=== PATIENT | female | born 1960 | race African-American/Black ===

== ENCOUNTER 2016-12-21 07:33 | Emergency (ER) | payer OTHER ==
[~2016-12-21] VITALS: Ht 152.4 cm; Wt 81.7 kg
[~2016-12-21 07:33] MED LIST: BENTYL 20 MG TA20 M1 PO; HYDROCHLOROTHIA25 M2 PO; LIPITOR 20 MG T20 M1 PO; OLANZAPINE15 MG PO; ONDANSETRON HCL4 M2 PO; PROTONIX40 M1 PO
[2016-12-21] MEDS ORDERED: MOBIC15 MG PO (08:05)
[2016-12-21] MEDS ORDERED: PANTOPRAZOLE SO40 M1 PO (08:05)
[2016-12-21] MEDS ORDERED: MUCINEX D ER 61 EACH PO (08:27)
[2016-12-21 08:49] VITALS: BP 138/65
== END 2016-12-21 08:53 | disposition home or self-care (01) ==
LOC: ER 07:33
DX: J06.9 Acute upper respiratory infection, unspecified (principal); I10 Essential (primary) hypertension; E78.00 Pure hypercholesterolemia, unspecified

== ENCOUNTER 2017-04-13 09:40 | Emergency (ER) | payer OTHER ==
[~2017-04-13] VITALS: Ht 154.9 cm; Wt 79.4 kg
--- NOTE | ~2017-04-13 | EKG ---
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 : 1960 Requested By: Romario Bradford Order Number: [id number] MD: Ehsan Lagos Measurements Intervals [place] Rate: 72 P: 46 OK: 124 QRS: 23 QRSD: 97 T: 11 QT: 405 QTc: 444 Interpretive Statements Sinus rhythm Abnormal R-wave progression, early transition Compared to ECG 12/21/2015 17:29:26 No significant changes Electronically Signed On 04-15-2017 8:19:12 CDT by Ehsan Lagos [email or web address] <ELECTRONICALLY SIGNED> By: Ehsan Lagos MD, [facility] 04/15/17 08 1006 Ehsan Lagos MD, [facility] /EPI
[~2017-04-13 09:40] MED LIST changes: +MOBIC15 MG PO; +MUCINEX D ER 61 EACH PO; +PANTOPRAZOLE SO40 M1 PO
[2017-04-13 10:24] LABS: ABSOLUTE NEUTROPHILS 6.3 thou/uL (1.4-8.2); BASOPHILS 0.5 % (0.0-2.0); EOSINOPHILS 0.9 % (0.0-3.0); HEMATOCRIT 34.3 % (37.0-47.0); HEMOGLOBIN 11.6 gm/dL (12.0-15.0); LYMPHOCYTES 16.4 % (24.0-44.0); MCH 30.3 pg (26.0-34.0); MCHC 33.8 g/dL (28.0-37.0); MCV 89.6 fL (80.0-100.0); MONOCYTES 6.1 % (1.0-8.0); PLATELET COUNT 307 thou/uL (150-400); POLYS 76.1 % (36.0-66.0); RBC 3.83 mil/uL (4.20-5.00); RDW 13.6 % (10.5-14.5); WBC 8.2 thou/uL (4.0-11.0)
[2017-04-13 10:26] LABS: MANUAL DIFF NO
[2017-04-13 10:36] LABS: URINE BILIRUBIN NEGATIVE (Negative); URINE BLOOD TRACE (Negative); URINE COLOR YELLOW; URINE GLUCOSE-RANDOM* NEGATIVE (Negative); URINE KETONES NEGATIVE (Negative); URINE PROTEIN (DIPSTICK) NEGATIVE (Negative); URINE SPECIFIC GRAVITY <= 1.005 (1.003-1.035); URINE UROBILINOGEN 0.2 E.U./dl (0.2-1.0)
[2017-04-13 10:38] LABS: URINE LEUKOCYTES-REFLEX 1+ (Negative)
[2017-04-13 10:40] LABS: SQUAMOUS 0-3 Few /LPF (0-3); URINE RBC 0-2 Rare /HPF (0-2); URINE WBC-REFLEX 0-5 Rare /HPF (0-5)
[2017-04-13 10:41] LABS: CASTS None Seen /LPF (None Seen); CRYSTALS None Seen /LPF (None Seen)
[2017-04-13 10:50] LABS: ANION GAP 9 mmol/L (7-16); BUN 10 mg/dL (7-18); CALCIUM 9.1 mg/dL (8.5-10.1); CHLORIDE 102 mmol/L (98-107); CO2 26 mmol/L (21-32); CREATININE 1.3 mg/dL (0.6-1.0); GLUCOSE 109 mg/dL (74-106); POTASSIUM 3.5 mmol/L (3.5-5.1); SODIUM 137 mmol/L (136-145)
[2017-04-13 10:59] LABS: ALBUMIN 3.4 g/dL (3.4-5.0); ALKALINE PHOSPHATASE 62 U/L (46-116); SGOT 21 U/L (15-37); SGPT 20 U/L (30-65); TOTAL BILIRUBIN 0.4 mg/dL (<0.1-1.0); TOTAL PROTEIN 6.9 g/dL (6.4-8.2); TROPONIN-I < 0.04 ng/mL (<0.04-0.07)
[2017-04-13] MEDS ORDERED: FLAGYL500 MG PO (11:49)
[2017-04-13] MEDS ORDERED: CIPRO500 MG PO (11:49)
[2017-04-13] MEDS ORDERED: SENNA8.6 MG PO (11:49)
[2017-04-13] MEDS ORDERED: ZOFRAN ODT4 M1 PO (12:31)
[2017-04-13 12:38] VITALS: BP 141/62
== END 2017-04-13 12:40 | disposition home or self-care (01) ==
LOC: ER 09:40
PROVIDERS: Physician Assistant
DX: K52.9 Noninfective gastroenteritis and colitis, unspecified (principal); K59.00 Constipation, unspecified; I10 Essential (primary) hypertension; E78.00 Pure hypercholesterolemia, unspecified

== ENCOUNTER 2017-04-15 14:46 | Inpatient (IN) | payer OTHER ==
[~2017-04-15] VITALS: Ht 154.9 cm; Wt 79.4 kg
--- NOTE | ~2017-04-15 | S ---
[facility] [place] [address] SURGICAL PATH RPT PROCEDURE Name: GAYLA CORDON [facility] Room #: 411-P ADM IN M.R.#: [id number] Admission: 04/15/17 Date of : 56 Discharge: Report #: [id number] Path Case #: [id number] PATHOLOGY REPORT COLLECTION DATE: 04/17/2017 RECEIVED DATE: 04/18/2017 SUBMITTING PHYS: Dr. Magnolia Welch OTHER PHYS: Dr. Jerald Chandler SPECIMEN(S) RECEIVED: A.Bx of duodenum B.Bx of gastric C.Random sigmoid bx * * * * * * * * * * * * FINAL DIAGNOSIS: A. Small bowel, duodenum, biopsy: - Unremarkable duodenal mucosa. B. Stomach, biopsy: - Mild chronic inactive gastritis. - An H. pylori immunostain is negative (Block B1; appropriately reactive control). C. Colon, sigmoid, biopsy: - Unremarkable colonic mucosa. - No evidence of microscopic colitis. PATHOLOGIST: Storm Edmonds M.D. REPORT ELECTRONICALLY SIGNED BY: Storm Edmonds M.D. DATE/TIME: 04/19/2017 13:36 * * * * * * * * * * * * GROSS PATHOLOGY: A. Received in formalin labeled "Gayla Cordon, BX of duodenum r/o celiac," is a segment of bob soft tissue measuring 0.4 cm in maximum dimension. The specimen is submitted entirely in cassette A1. B. Received in formalin labeled "Gayla Cordon, BX of gastric r/o H. pylori," are 4 segments of bob soft tissue measuring 1.1 x 1.5 x 0.2 cm in aggregate dimensions and ranging from 0.3 to 0.7 cm in maximum dimension. The specimen is submitted entirely in cassette B1. C. Received in formalin labeled "Gayla Cordon, random sigmoid BX," and additionally labeled on the requisition as "r. t. thickening mucosa of sigmoid seen on CT scan," are 4 segments of bob soft tissue measuring 1.2 x 0.9 x 0.4 cm in aggregate dimensions and ranging from 0.4 to 0.4 cm in maximum dimension. The specimen is submitted entirely in cassette C1. (TSD; 04/18/2017) [place] [address] [place] [address] SURGICAL PATH RPT PROCEDURE Name: GAYLA CORDON [facility] Room #: 411-P ADM IN M.R.#: [id number] Admission: 04/15/17 Date of : 56 Discharge: Report #: [id number] Path Case #: [id number] CLINICAL HISTORY: Pre-OP DX: c/o right lower quadrant pain, N+V Post-OP DX: Hiatal hernia, normal colon INITIAL CPT CODE(S): A; 98640 B; 37028, 87474 C; 18543 Professional services performed by [facility] at [facility] [place] [address] [address] Technical services performed by [facility] at [address] [place] [address], [address], [place] [address]. [facility] [address] [place] [address] PHONE: [phone] DIRECTOR: Luther Conte M.D. * * * END OF REPORT * * *
--- NOTE | ~2017-04-15 | P ---
[facility] [place] [address] PROCEDURE REPORT Name: EFRAIN CORDON [facility] Room #: 411-P ADM IN M.R.#: [id number] Admission: 04/15/17 Attend Phys: Jerald Chandler DO Discharge: Date of : 56 Report #: [id number] THIS REPORT FOR: //name// CC: FAM unknown Jerald Chandler DO DATE OF SERVICE: 04/17/2017 PROCEDURE: EGD with biopsies. PATIENT OF: Dr. Jerald Chandler. INDICATION FOR PROCEDURE: Evaluate right lower quadrant and right pelvic pain, constipation, nausea, vomiting, and an episode of diarrhea. The patient had a thickened sigmoid on CT scan. Informed consent for this procedure was obtained prior to the administration of any medication. The risks of the procedure, which include bleeding, perforation, infection, complications of sedation and the possibility I could miss something have been explained to the patient and she has indicated her consent by signing. Propofol was slowly titrated before and during this procedure for the patient comfort by the anesthesia service. The [employer] upper videoscope was introduced through the upper esophageal sphincter and advanced under direct visualization to the distal second portion of the duodenum. Findings are noted on withdrawal of the scope. The duodenal mucosa appeared normal. Biopsies were obtained times 2 to evaluate for histopathology and rule out celiac sprue. Pylorus, normal mucosa. Antrum, normal mucosa. Body, normal mucosa. Cardia and fundus, normal mucosa. Retroflex view does reveal the presence of a moderate hiatal hernia. Scope was withdrawn into the esophagus. The Z-line is appropriately located at the top of the gastric folds and is normal. The esophageal mucosa appears normal throughout its entirety. Scope was advanced then into the stomach again and biopsies were obtained times 2 to evaluate for possible H. pylori infection. The scope was withdrawn. Good hemostasis was noted after all biopsies. The patient went to the recovery room in stable condition. She tolerated the procedure well. Blood loss was less than 3 mL. IMPRESSION: Hiatal hernia. Other than that, normal EGD to descending duodenum, biopsies pending. RECOMMENDATIONS: To await the biopsy results. We will proceed with colonoscopy at this time. [address] [address] PROCEDURE REPORT Name: EFRAIN CORDON [facility] Room #: 411-P [facility] IN M.R.#: [id number] Admission: 04/15/17 Attend Phys: Jerald Chandler DO Discharge: Date of : 56 Report #: [id number] Thank you very much once again for allowing me to participate in her care, Dr. Chandler. <ELECTRONICALLY SIGNED> By: Magnolia Welch DO 04/18/179 2311 49 Magnolia Welch DO /nt
--- NOTE | ~2017-04-15 | HC ---
[facility] [place] [address] CONSULTATION Name: EFRAIN CORDON [facility] Room #: 411-P ADM IN M.R.#: [id number] Admission: 04/15/17 Attend Phys: Jerald Chandler DO Discharge: Date of : 56 Report #: [id number] THIS REPORT FOR: //name// CC: FAM unknown Jerald Chandler DATE OF SERVICE: 04/17/2017 REFERRING PROVIDER: Willian Arrieta MD REASON FOR CONSULTATION: Abdominal pain. HISTORY OF PRESENT ILLNESS: The patient is a 57-year-old [place] woman who speaks very little Tajik, but presented to the hospital 2 days ago with ongoing abdominal pain, nausea, and vomiting that has been ongoing for approximately a year and a half. The patient did have significant constipation with one large bowel movement after receiving an enema and is currently scheduled to undergo a bowel prep this evening with EGD and colonoscopy tomorrow. The patient does have a past surgical history of hysterectomy while in [facility] for unknown reasons and the request for consultation was secondary to the possibility of adhesions causing her ongoing pain and issues. The patient has no other complaints today. PAST MEDICAL HISTORY: Hypercholesterolemia and hypertension. PAST SURGICAL HISTORY: Hysterectomy. HOME MEDICATIONS: Hydrochlorothiazide, atorvastatin and olanzapine. ALLERGIES: No known drug allergies. FAMILY HISTORY: Reviewed and noncontributory. SOCIAL HISTORY: The patient does not utilize tobacco, alcohol, or illicit drugs. REVIEW OF SYSTEMS: GENERAL: The patient denies nocturnal fevers or chills. HEENT: No change in vision or change in hearing. NECK: No swelling or difficulty swallowing. HEART: No chest pain or palpitations. LUNGS: No cough or shortness of breath. ABDOMEN: Abdominal pain with nausea and vomiting. GENITOURINARY: No dysuria or hematuria. ENDOCRINE: No polyuria or polydipsia. HEMATOLOGIC: No history of bleeding or easy bruising. [facility] [address] [place] [address] CONSULTATION Name: EFRAIN CORDON [facility] Room #: 411-P [facility].#: [id number] Admission: 04/15/17 Attend Phys: Jerald Chandler DO Discharge: Date of : 56 Report #: [id number] EXTREMITIES: No history of weakness or limited range of motion. NEUROLOGIC: No history of syncope or near syncopal episodes. SKIN AND INTEGUMENT: No history of abnormal lesions or moles. PSYCHIATRIC: No history of anxiety or depression. PHYSICAL EXAMINATION: VITAL SIGNS: Temperature 98.4, pulse 73, respirations 18, blood pressure 142/79, she stands 5 feet 1 inch tall and weighs 175 pounds. GENERAL: Alert, in no acute distress. HEENT: Normocephalic, atraumatic. Pupils are equal, round, and reactive to light. NECK: Supple without lymphadenopathy. Trachea midline. HEART: Regular rate and rhythm. LUNGS: Clear to auscultation bilaterally. ABDOMEN: Soft, nondistended. She does have diffuse abdominal pain, but no pain to palpation. She has normal active bowel sounds. GENITOURINARY: Normal external female genitalia. EXTREMITIES: No clubbing, cyanosis, or edema. NEUROLOGIC: Cranial nerves 2-12 are grossly intact. PSYCHIATRIC: Normal mood and affect. SKIN AND INTEGUMENT: No abnormal lesions or moles. LABORATORY AND X-RAY DATA: CBC yesterday showed a white blood cell count of 11.6 thousand, hemoglobin 11.6, and platelets 302,000. Creatinine is 1.1. Lactic acid was normal 2 days ago at 1.[address]. CT scan of the abdomen and pelvis 4 days ago showed nonspecific mild mural thickening of the sigmoid colon consistent with colitis, but no other acute process and she had significant constipation on her prior CT scan 1 year ago. The patient does have a gastric emptying study ordered for tomorrow as well. ASSESSMENT AND PLAN: A 57-year-old [place] female with diffuse generalized abdominal pain without reproducibility from palpation and significant constipation as well as the possibility of sigmoid colitis. The patient is currently on antibiotics and is being evaluated by gastroenterology and is about to undergo bowel prep with intent to proceed with an EGD and colonoscopy and a gastric emptying study. At this time, she has no emergent surgical issue and I will allow them to complete their workup at this time. One adjunct I would add after she has undergone endoscopy is the possibility of small-bowel series to evaluate transit of the small bowel. Nonetheless, I will follow closely and leave any further recommendations in the patient's chart as appropriate. I sincerely appreciate this consult. <ELECTRONICALLY SIGNED> By: Dhaval Trujillo MD, FACS 04/19/17 1007 [id number] 1523 Dhaval Trujillo MD, FACS /nt
--- NOTE | ~2017-04-15 | P ---
[facility] [place] [address] PROCEDURE REPORT Name: EFRAIN CORDON [facility] Room #: 411-P ADM IN M.R.#: [id number] Admission: 04/15/17 Attend Phys: Jerald Chandler DO Discharge: Date of : 56 Report #: [id number] THIS REPORT FOR: //name// CC: Magnolia Welch DO FAM unknown Jerald Chandler DO DATE OF SERVICE: 04/17/2017 PATIENT OF: Jerald Chandler D.O. INDICATION FOR PROCEDURE: Evaluate right lower quadrant and right pelvic pain, constipation, nausea and vomiting and a thickened sigmoid on CT scan. DESCRIPTION OF PROCEDURE: Informed consent for this procedure was obtained prior to the administration of any medication. The risks of the procedure including bleeding, perforation, infection, complications of sedation and the possibility I could miss something have been explained to the patient and her family, and they have indicated their consent by signing. Propofol was slowly titrated before and during this procedure for patient comfort. Digital rectal exam was performed, and no abnormalities were palpated. The [employer] colonoscope was then inserted through the anal sphincter and advanced under direct visualization to the terminal ileum. Findings are noted on withdrawal of the scope. The terminal ileal mucosa appears normal. The cecum appears normal. Ascending colon, normal mucosa. Hepatic flexure, normal mucosa. Transverse colon, normal mucosa. Splenic flexure, normal mucosa. Descending colon, normal mucosa. Sigmoid colon, normal mucosa. Random biopsies were obtained times 4 from the normal-appearing sigmoid to be certain that we did not miss a microscopic cause of her thickened sigmoid on CT scanning. Rectum, normal mucosa. Retroflexed view did not reveal any further abnormalities. The scope was withdrawn. The patient went to the recovery area in stable condition. She tolerated the procedure well. IMPRESSION: Normal colonoscopic exam to the terminal ileum. Biopsies of the sigmoid taken times 4 as above. Good hemostasis was noted after all biopsies. RECOMMENDATIONS: Are to await the biopsy results. I suspect that the etiology of this patient's deep right pelvic pain is probably related to her previous total abdominal hysterectomy with bilateral salpingo-oophorectomy. It may be adhesional in nature. My recommendations were to consider a surgical consultation. We have also recommended that she take 1-3 glasses of MiraLax daily to prevent recurrent constipation that has been quite a problem for her recently. [address] [address] PROCEDURE REPORT Name: EFRAIN CORDON [facility] Room #: 411-P [facility] IN M.R.#: [id number] Admission: 04/15/17 Attend Phys: Jerald Chandler DO Discharge: Date of : 56 Report #: [id number] Thank you very much once again for allowing me to participate in her care. <ELECTRONICALLY SIGNED> By: Magnolia Welch DO 04/18/17 2039 2315 2036 Magnolia Welch DO /luis
--- NOTE | ~2017-04-15 | HC ---
[facility] [place] [address] CONSULTATION Name: EFRAIN CORDON [facility] Room #: 411-P ADM IN M.R.#: [id number] Admission: 04/15/17 Attend Phys: Jerald Chandler DO Discharge: Date of : 56 Report #: [id number] THIS REPORT FOR: //name// CC: FAM unknown Jerald Chandler DATE OF SERVICE: 04/15/2017 GASTROINTESTINAL CONSULTATION DATE OF SERVICE: 04/15/2017 REASON FOR CONSULTATION: The patient is a 57-year-old Eritre[place] woman with abdominal pain, nausea, vomiting. HISTORY OF PRESENT ILLNESS: The patient speaks very little [place]. Fortunately, her son was present, was able to translate for me. She was admitted through the Emergency Room with nausea, vomiting, abdominal pain. However, this is not an isolated event. Upon reviewing records in the computer, it is noted that the patient has been coming to [place] for nearly a year and half with similar symptoms. She also admits that she has been having these problems for about 3 years. She did have a hysterectomy in [place] many years ago. She reports that something was found on a regular checkup, which led to a hysterectomy. As best I cannot understand through translation, this may have been a precancer lesion. She has not had any GI evaluation at any other institution or at any other time. She has not had a bowel movement for more than a week or so. She took some mag citrate a couple of weeks ago and it caused her to have watery diarrhea. She reports at this time, her biggest problem and biggest complaint is "her constipation" causing diffuse lower abdominal pain. She has not had any rectal bleeding. She does have periods of nausea and vomiting and brings up only secretions. She has not vomited food or blood. She denies use of nonsteroidals. PAST MEDICAL HISTORY: Notable for elevated cholesterol and high blood pressure. PAST SURGICAL HISTORY: Hysterectomy. MEDICATIONS: Usual medicines, hydrochlorothiazide 25 mg daily, atorvastatin 20 mg daily, olanzapine 15 mg daily. FAMILY HISTORY: No family history of colon cancer or ulcer disease. SOCIAL HISTORY: , has never smoked, does not consume alcohol. She is from [facility]. She does not work outside the home. [facility] [address] [place] [address] CONSULTATION Name: EFRAIN CORDON [facility] Room #: [address] [place] [address] [place] .R.#: [id number] Admission: 04/15/17 Attend Phys: Jerald Chandler DO Discharge: Date of : 56 Report #: [id number] REVIEW OF SYSTEMS: This was through the son as best I could understand. GENERAL: No change in weight, fever or chills. CENTRAL NERVOUS SYSTEM: No weakness, numbness, loss of consciousness. HEENT: She has had some loss of hearing. No change in vision or hearing or sores in the mouth. PULMONARY: No cough, pneumonia or tuberculosis. CARDIOVASCULAR: No chest pain, chest tightness or palpitations. GASTROINTESTINAL: Nausea and vomiting. No hematemesis. Constipation, which is a chronic problem; abdominal pain, which is a chronic problem as well. GENITOURINARY: Previous hysterectomy, sounds as now having breast problems. MUSCULOSKELETAL: No arthralgias or myalgias. SKIN: Without rashes. PSYCHIATRIC: She denies any problems, but she is on Zyprexa. HEMATOLOGIC: No bleeding, bruising, malignancies. She had what sounds like a precancerous lesion resulting in hysterectomy. PHYSICAL EXAMINATION: GENERAL: The patient is a well-developed, well-nourished woman in no acute distress. VITAL SIGNS: Her blood pressure is 160/53, pulse 82, respiratory rate 17. HEENT: Anicteric. Pupils equal and round. Oropharynx clear. NECK: Supple. CHEST: Clear. HEART: Regular rate and rhythm, normal S1 and S2. ABDOMEN: Obese, normal bowel sounds, soft, minimal tenderness diffusely across the lower abdomen. There is a well-healed midline scar below the umbilicus. RECTAL: Not done at this time. EXTREMITIES: Without cyanosis, clubbing or edema. NEUROLOGIC: Oriented to person, place and time. Moves all 4 extremities well. LABORATORY DATA: White count of 12.1, hemoglobin 13.3, bands were not reported. Sodium 132, potassium 3.5, chloride 96, BUN of 12, creatinine 1.3, lactic acid 1.6. Liver function studies are normal. Albumin normal ____ lipase of 86. CT was done in the Emergency Room visit when she was here 2 days ago and then returned and was admitted. The CT reveals nonspecific mild mural thickening of the sigmoid colon suggestive of colitis. No other lesions were seen. ASSESSMENT: 1. Chronic abdominal pain. 2. Chronic constipation. 3. Nausea and vomiting. 4. Previous hysterectomy, possibly for a precancerous lesion. 5. High blood pressure. 6. Hyperlipidemia. 7. Questionable psychiatric history. [facility] [address] [place] [address] CONSULTATION Name: EFRAIN CORDON Room #: 411-P [facility] IN M.R.#: [id number] Admission: 04/15/17 Attend Phys: Jerald Chandler DO Discharge: Date of : 56 Report #: [id number] COMMENT: Discussed with son. She states that the constipation is bothering her the most right now. She does not think she can drink any oral laxatives, which will make cleaning her out a little more difficult. RECOMMENDATIONS: 1. Tap-water medication. 2. Treat symptomatically for nausea and vomiting. 3. When able to do so, colonoscopy and possibly upper endoscopy. COMMENT: I would wonder if adhesions are playing a role in her chronic abdominal pain. <ELECTRONICALLY SIGNED> By: Willian Arrieta MD 04/16/17 1727 194 0 Willian Arrieta MD /nt
[~2017-04-15 14:46] MED LIST changes: +CIPRO500 MG PO; +FLAGYL500 MG PO; +SENNA8.6 MG PO; +ZOFRAN ODT4 M1 PO
[2017-04-15 14:48] VITALS: BP 160/53
[2017-04-15 15:16] LABS: ABSOLUTE NEUTROPHILS 8.2 thou/uL (1.4-8.2); BASOPHILS 0.7 % (0.0-2.0); EOSINOPHILS 0.7 % (0.0-3.0); HEMATOCRIT 39.9 % (37.0-47.0); HEMOGLOBIN 13.3 gm/dL (12.0-15.0); LYMPHOCYTES 25.3 % (24.0-44.0); MCHC 33.4 g/dL (28.0-37.0); MCV 89.9 fL (80.0-100.0); MONOCYTES 5.9 % (1.0-8.0); PLATELET COUNT 290 thou/uL (150-400); POLYS 67.4 % (36.0-66.0); RBC 4.43 mil/uL (4.20-5.00); RDW 13.3 % (10.5-14.5); WBC 12.1 thou/uL (4.0-11.0)
[2017-04-15 15:22] LABS: MANUAL DIFF NO
[2017-04-15 15:25] LABS: CALCIUM 9.3 mg/dL (8.5-10.1); CREATININE 1.3 mg/dL (0.6-1.0); POTASSIUM 3.5 mmol/L (3.5-5.1)
[2017-04-15 15:31] LABS: TOTAL BILIRUBIN 0.5 mg/dL (<0.1-1.0); TOTAL PROTEIN 7.9 g/dL (6.4-8.2)
[2017-04-15 15:53] VITALS: BP 160/53
[2017-04-15 16:21] VITALS: BP 160/53
[2017-04-15 20:18] VITALS: BP 139/61
[2017-04-16 04:26] VITALS: BP 127/73
[2017-04-16 06:33] LABS: ABSOLUTE NEUTROPHILS 9.5 thou/uL (1.4-8.2); BASOPHILS 0.4 % (0.0-2.0); EOSINOPHILS 0.2 % (0.0-3.0); HEMATOCRIT 34.6 % (37.0-47.0); HEMOGLOBIN 11.6 gm/dL (12.0-15.0); LYMPHOCYTES 12.8 % (24.0-44.0); MANUAL DIFF NO; MCH 29.9 pg (26.0-34.0); MCHC 33.5 g/dL (28.0-37.0); MCV 89.4 fL (80.0-100.0); MONOCYTES 4.7 % (1.0-8.0); PLATELET COUNT 302 thou/uL (150-400); POLYS 81.9 % (36.0-66.0); RBC 3.88 mil/uL (4.20-5.00); RDW 13.6 % (10.5-14.5); WBC 11.6 thou/uL (4.0-11.0)
[2017-04-16 06:48] LABS: CALCIUM 8.4 mg/dL (8.5-10.1); CREATININE 1.1 mg/dL (0.6-1.0)
[2017-04-16 08:00] VITALS: BP 115/42
[2017-04-16 16:00] VITALS: BP 119/55
[2017-04-16 20:00] VITALS: BP 138/52
[2017-04-17 04:00] VITALS: BP 136/71
[2017-04-17 07:40] VITALS: BP 142/60
[2017-04-17 16:00] VITALS: BP 127/62
[2017-04-17 17:23] VITALS: BP 142/79
[2017-04-17 20:00] VITALS: BP 121/60
[2017-04-18] VITALS: BP 115/50
[2017-04-18 04:00] VITALS: BP 111/54
[2017-04-18 05:55] LABS: HEMATOCRIT 32.1 % (37.0-47.0); HEMOGLOBIN 10.5 gm/dL (12.0-15.0); MCH 30.1 pg (26.0-34.0); MCHC 32.8 % (28.0-37.0); RBC 3.48 mil/uL (4.20-5.00); RDW 13.6 % (10.5-14.5)
[2017-04-18 07:10] LABS: CALCIUM 7.6 mg/dL (8.5-10.1); CREATININE 0.9 mg/dL (0.6-1.0)
[2017-04-18 07:18] LABS: POTASSIUM 2.4 mmol/L (3.5-5.1)
[2017-04-18 08:06] VITALS: BP 132/60
[2017-04-18 17:40] LABS: POTASSIUM 3.5 mmol/L (3.5-5.1)
[2017-04-18 20:45] VITALS: BP 120/57
[2017-04-19 03:09] VITALS: BP 137/60
[2017-04-19 10:50] VITALS: BP 147/64
[2017-04-19 18:28] VITALS: BP 103/51
[2017-04-19 19:32] LABS: ABSOLUTE NEUTROPHILS 5.3 thou/uL (1.4-8.2); BASOPHILS 0.7 % (0.0-2.0); EOSINOPHILS 1.6 % (0.0-3.0); HEMATOCRIT 33.5 % (37.0-47.0); HEMOGLOBIN 11.5 gm/dL (12.0-15.0); LYMPHOCYTES 28.8 % (24.0-44.0); MCH 30.5 pg (26.0-34.0); MCHC 34.4 g/dL (28.0-37.0); MCV 88.8 fL (80.0-100.0); MONOCYTES 5.9 % (1.0-8.0); PLATELET COUNT 241 thou/uL (150-400); RBC 3.77 mil/uL (4.20-5.00); RDW 13.7 % (10.5-14.5); WBC 8.4 thou/uL (4.0-11.0)
[2017-04-19 19:33] LABS: MANUAL DIFF NO
[2017-04-19 19:39] LABS: URINE BILIRUBIN 2+ (Negative); URINE BLOOD 3+ (Negative); URINE COLOR YELLOW; URINE GLUCOSE-RANDOM* NEGATIVE (Negative); URINE KETONES TRACE (Negative); URINE NITRITE NEGATIVE (Negative); URINE PROTEIN (DIPSTICK) NEGATIVE (Negative); URINE SPECIFIC GRAVITY 1.015 (1.003-1.035); URINE UROBILINOGEN 0.2 E.U./dl (0.2-1.0)
[2017-04-19 19:42] LABS: ICTOTEST (BILI CONFIRMATORY) Positive (Negative)
[2017-04-19 19:46] LABS: CALCIUM 8.1 mg/dL (8.5-10.1); CREATININE 0.8 mg/dL (0.6-1.0)
[2017-04-19 20:06] LABS: AMORPHOUS URATES Many /LPF (None Seen); BACTERIA >30 Many /HPF (None Seen); CASTS None Seen /LPF (None Seen); SQUAMOUS 0-3 Few /LPF (0-3); URINE RBC 3-10 Few /HPF (0-2); URINE WBC 0-5 Rare /HPF (0-5)
[2017-04-20 02:40] VITALS: BP 115/55
[2017-04-20 08:00] VITALS: BP 116/72
[2017-04-20] MEDS ORDERED: POTASSIUM20 PO (08:49)
[2017-04-20 11:11] VITALS: BP 116/72
[2017-04-20] MEDS ORDERED: ERYTHROMYCIN500 MG PO (12:42)
== END 2017-04-20 15:00 | disposition home or self-care (01) | DRG 392 ==
LOC: ER 14:46 → 4N 15:31 → EROBS 15:31 → 4N 16:24
PROVIDERS: Family Medicine; Nurse Practitioner; Physician Assistant
DX: K52.9 Noninfective gastroenteritis and colitis, unspecified (principal); N17.9 Acute kidney failure, unspecified; I10 Essential (primary) hypertension; K31.84 Gastroparesis; E78.00 Pure hypercholesterolemia, unspecified; E66.9 Obesity, unspecified; K59.09 Other constipation; K44.9 Diaphragmatic hernia without obstruction or gangrene; E87.6 Hypokalemia; Z90.710 Acquired absence of both cervix and uterus; Z68.33 Body mass index [BMI] 33.0-33.9, adult; Z79.899 Other long term (current) drug therapy
CPT/HCPCS: 10091; 62110; 62900; 70005